=== PATIENT | female | born 1975 | race African-American/Black ===

== ENCOUNTER 2017-11-13 16:48 | Emergency (ER) | payer OTHER ==
[~2017-11-13] VITALS: Ht 167.6 cm; Wt 58.1 kg
[~2017-11-13 16:48] MED LIST: DIFLUCAN100 MG ORAL; IBUPROFEN600 M1 PO; IBUPROFEN600 MG ORAL; MACROBID100 MG ORAL; NKM; VIBRAMYCIN100 MG ORAL
[2017-11-13] MEDS ORDERED: oxyCODONE HCL/Acetaminophen 5/325mg ORAL ONE (18:45)
[2017-11-13 20:04] LABS: BASOPHILS % (AUTO) 0.8 % (0.0-2.0); HEMATOCRIT 38.6 % (37.0-47.0); HEMOGLOBIN 13.3 G/DL (12.0-16.0); LYMPHOCYTES % (AUTO) 21.4 % (20.0-45.0); MEAN CORPUSCULAR VOLUME 92 FL (80-99); MONOCYTES % (AUTO) 9.3 % (1.0-10.0); NEUTROPHILS % (AUTO) 67.5 % (45.0-75.0); PLATELET COUNT 243 K/UL (150-450); RED BLOOD COUNT 4.21 M/UL (4.20-5.40); RED CELL DISTRIBUTION WIDTH 11.4 % (11.6-14.8); WHITE BLOOD COUNT 9.5 K/UL (4.8-10.8)
[2017-11-13 20:09] LABS: ANION GAP 9 mmol/L (5-15); BLOOD UREA NITROGEN 6 mg/dL (7-18); CALCIUM 9.1 MG/DL (8.5-10.1); CARBON DIOXIDE 26 MMOL/L (21-32); CHLORIDE 103 MMOL/L (98-107); CREATININE 0.8 MG/DL (0.55-1.30); POTASSIUM 3.6 MMOL/L (3.5-5.1); SODIUM 138 MMOL/L (136-145)
[2017-11-13 21:00] VITALS: BP 116/72
[2017-11-13] MEDS ORDERED: MACROBID100 MG ORAL (21:00)
[2017-11-13] MEDS ORDERED: PRENATAL LOW I1 EACH PO (21:21)
[2017-11-13] MEDS ORDERED: TYLENOL EXTRA500 MG ORAL (21:22)
[2017-11-13 21:25] VITALS: BP 116/72
--- NOTE | 2017-11-13 22:56 | Emergency Room Report ---
History of Present Illness General Chief Complaint: Abdominal Pain Source: Patient Present Illness HPI Ms. Moyer is pleasant 41 yo female without significant past medical history who presents with suprapubic pain. The pain began on Monday. Now she has left flank pain. Pain is sharp. She has nausea. Last menstrual period October 01. Gradual onset of symptoms. Pain is worse with movement. Moderate in severity. Allergies: Coded Allergies: PENICILLINS (Unverified Allergy, Unknown, 04/22/14) Patient History Past Medical History: other - PID Social History: Reports: smoking, drug use - marijuana; Denies: alcohol use Last Menstrual Period: 10/01/17 Reviewed Nursing Documentation: PMH: Agreed; PSxH: Agreed Nursing Documentation-PMH Past Medical History: No History, Except For Hx Asthma: Yes Review of Systems Constitutional: Denies: fever, malaise Cardiovascular: Denies: chest pain Gastrointestinal: Reports: abdominal pain Musculoskeletal: Reports: back pain All Other Systems: negative except mentioned in HPI Physical Exam Vital Signs Date Time Temp Pulse Resp B/P (MAP) Pulse Ox O2 Delivery O2 Flow Rate FiO2 11/13/17 17:01 98.2 90 18 112/79 98 Room Air 98.2 Sp02 EP Interpretation: reviewed, normal General Appearance: no apparent distress, alert, GCS 15, non-toxic Head: normocephalic, atraumatic Eyes: bilateral eye normal inspection, bilateral eye PERRL ENT: hearing grossly normal, normal pharynx, no angioedema, normal voice Neck: full range of motion, supple/symm/no masses Respiratory: chest non-tender, lungs clear, normal breath sounds, speaking full sentences Cardiovascular #1: regular rate, rhythm, no edema Gastrointestinal: normal bowel sounds, non tender, soft, non-distended, no guarding, no rebound Rectal: deferred Genitourinary: normal inspection, no CVA tenderness Musculoskeletal: back normal, gait/station normal, normal range of motion, non- tender, calf tenderness Neurologic: alert, oriented x3, responsive, motor strength/tone normal, sensory intact, speech normal Psychiatric: judgement/insight normal, memory normal, mood/affect normal, no suicidal/homicidal ideation Skin: normal color, no rash, warm/dry, well hydrated Medical Decision Making Diagnostic Impression: Primary Impression: UTI (urinary tract infection) Additional Impression: ER Course New diagnosis of with documented IUP and UTI rx: tylenol nitrofurantion PNV Labs Test 11/13/17 18:37 11/13/17 19:40 Urine HCG, Qualitative Positive (NEGATIVE) White Blood Count 9.5 K/UL (4.8-10.8) Red Blood Count 4.21 M/UL (4.20-5.40) Hemoglobin 13.3 G/DL (12.0-16.0) Hematocrit 38.6 % (37.0-47.0) Mean Corpuscular Volume 92 FL (80-99) Mean Corpuscular Hemoglobin 31.5 PG (27.0-31.0) Mean Corpuscular Hemoglobin Concent 34.4 G/DL (32.0-36.0) Red Cell Distribution Width 11.4 % (11.6-14.8) Platelet Count 243 K/UL (150-450) Mean Platelet Volume 7.2 FL (6.5-10.1) Neutrophils (%) (Auto) 67.5 % (45.0-75.0) Lymphocytes (%) (Auto) 21.4 % (20.0-45.0) Monocytes (%) (Auto) 9.3 % (1.0-10.0) Eosinophils (%) (Auto) 1.0 % (0.0-3.0) Basophils (%) (Auto) 0.8 % (0.0-2.0) Sodium Level 138 MMOL/L (136-145) Potassium Level 3.6 MMOL/L (3.5-5.1) Chloride Level 103 MMOL/L (98-107) Carbon Dioxide Level 26 MMOL/L (21-32) Anion Gap 9 mmol/L (5-15) Blood Urea Nitrogen 6 mg/dL (7-18) Creatinine 0.8 MG/DL (0.55-1.30) Estimat Glomerular Filtration Rate > 60 mL/min (>60) Glucose Level 94 MG/DL (74-106) Calcium Level 9.1 MG/DL (8.5-10.1) Human Chorionic Gonadotropin, Quant 68598 mIU/mL (1-6) CT/MRI/US Diagnostic Results CT/MRI/US Diagnostic Results : Imaging Test Ordered: ultrasound Impression IUP Last Vital Signs Date Time Temp Pulse Resp B/P (MAP) Pulse Ox O2 Delivery O2 Flow Rate FiO2 11/13/17 19:24 98.2 11/13/17 17:01 90 18 112/79 98 Room Air Disposition: HOME, SELF-CARE Condition: Stable Scripts Acetaminophen* (TYLENOL EXTRA STRENGTH*) 500 Mg Tablet 500 MG ORAL Q6H PRN for Mild Pain/Temp > 100.5, #30 TAB 0 Refills Prov: RENALDO HENSON 11/13/17 Pnv With Ca,No.74/Iron/Fa ( LOW IRON TABLET) 1 Each Tablet 1 EACH PO DAILY for 90 Days, #90 TAB 2 Refills Prov: RENALDO HENSON 11/13/17 Nitrofurantoin Monohyd/M-Cryst (Nitrofurantoin [place]-Mcr 100 mg) 100 Mg Capsule 100 MG ORAL BID for 10 Days, #20 CAP Prov: RENALDO HENSON 11/13/17 Patient Instructions: Urinary Tract Infection, [id number], Abdominal Pain During RENALDO HENSON Nov 13, 2017 22:56
--- NOTE | 2017-11-14 09:27 | Diagnostic Imaging Report ---
Indication: Pelvic pain, positive test Technique: Transabdominal and transvaginal images Comparison: none Findings: Uterus measures 8.9 cm length by 3.7 cm AP. Within the endometrium, there is a gestational sac.. It demonstrates a yolk sac and a pole. [place]-rump length of the pole is 6 mm, corresponding estimated gestational age 6 weeks 3 days. This demonstrates positive heart activity, heart rate 180 bpm. No subchorionic hemorrhage demonstrated. No myometrial abnormality. Right ovary measures 3.7 cm in length, demonstrates a collapsed corpus luteum. The left ovary measures 4 cm in length. No adnexal mass demonstrated. Normal ovarian blood flow bilaterally. No free cul-de-sac fluid Impression: Single live intrauterine . No gestational age 6 weeks 3 days by crown-rump length. No unusual features
== END 2017-11-13 21:25 | disposition home or self-care (01) ==
LOC: EMR 20:00
DX: O23.40 Unspecified infection of urinary tract in pregnancy, unspecified trimester (principal); Z3A.00 Weeks of gestation of pregnancy not specified; Z88.0 Allergy status to penicillin
CPT/HCPCS: 36415; 76801; 76830; 80048; 81025; 84702; 85025; 99284

== ENCOUNTER 2018-10-20 16:47 | Emergency (ER) | payer OTHER ==
[~2018-10-20] VITALS: Ht 167.6 cm; Wt 61.7 kg
[~2018-10-20 16:47] MED LIST changes: +ACETAMINOPHEN-1 EAC1 ORAL; +HYDROCODON-ACE1 EA15 ORAL; +PRENATAL LOW I1 EACH PO; +TYLENOL EXTRA500 MG ORAL
[2018-10-20 16:51] VITALS: BP 118/82
--- NOTE | 2018-10-20 17:06 | NUR ---
ED Nurse Note: Pt came in from home due to R lower abdominal pain with vaginal bleeding. Pt started mentrual period on 10/03/18, has been bleeding on and off, today passed a blood clot. Pt worries that symptoms resemble miscarriage that she experienced last November. Pain 12/11 jeffy. AOx4, VSS jeffy. Will cont to monitor.
[2018-10-20 17:39] LABS: APPEARANCE,URINE CLEAR; BASOPHILS % (AUTO) 1.4 % (0.0-2.0); BILIRUBIN, URINE NEGATIVE (NEGATIVE); COLOR,URINE PALE YELLOW; GLUCOSE, URINE (UA) NEGATIVE (NEGATIVE); KETONES,URINE NEGATIVE (NEGATIVE); LEUKOCYTE ESTERASE ,URINE NEGATIVE (NEGATIVE); MEAN CORPUSCULAR VOLUME 95 FL (80-99); MONOCYTES % (AUTO) 7.2 % (1.0-10.0); NEUTROPHILS % (AUTO) 50.3 % (45.0-75.0); NITRITE,URINE NEGATIVE (NEGATIVE); PH,URINE 7 (4.5-8.0); PLATELET COUNT 226 K/UL (150-450); PROTEIN,URINE NEGATIVE (NEGATIVE); RED BLOOD COUNT 4.21 M/UL (4.20-5.40); RED CELL DISTRIBUTION WIDTH 11.7 % (11.6-14.8); UROBILINOGEN,URINE 1 MG/DL (0.0-1.0); WHITE BLOOD COUNT 4.5 K/UL (4.8-10.8)
[2018-10-20 18:06] LABS: ANION GAP 8 mmol/L (5-15); BLOOD UREA NITROGEN 9 mg/dL (7-18); CALCIUM 8.9 MG/DL (8.5-10.1); CARBON DIOXIDE 25 MMOL/L (21-32); CHLORIDE 105 MMOL/L (98-107); CREATININE 0.9 MG/DL (0.55-1.30); POTASSIUM 3.8 MMOL/L (3.5-5.1); SODIUM 138 MMOL/L (136-145)
[2018-10-20] MEDS ORDERED: Ketorolac 30mg Inj IV ONE (18:15)
--- NOTE | 2018-10-20 18:54 | NUR ---
ED Nurse Note: Pt down to US for imaging.
[2018-10-20 19:02] VITALS: BP 121/74
--- NOTE | 2018-10-20 20:18 | Diagnostic Imaging Report ---
Indication:Lower abdominal and pelvic pain Technique: Grayscale and duplex Doppler imaging of the pelvis performed utilizing a transabdominal and endovaginal scan. Comparison: None Findings: The size, contour, and configuration of the uterus is within normal limits. The endometrium is uniformly echogenic and normal in thickness measuring 4 mm. Uterus 7.6 x 4 x 3.1 cm. The ovaries appear normal bilaterally with good dopplerable blood flow. There is no significant free fluid identified. There is a probable hemorrhagic cyst measuring 1.5 cm within the left ovary. There is no free fluid. The right ovary measures 3.6 x 2.5 x 2.5 cm. Left ovary 3.9 x 4 x 2.1 cm. IMPRESSION: Negative pelvic ultrasound. No acute findings.
[2018-10-20] MEDS ORDERED: IBUPROFEN600 MG ORAL (20:20)
--- NOTE | 2018-10-20 20:20 | Emergency Room Report ---
History of Present Illness General Chief Complaint: Abdominal Pain Source: Medical Record Present Illness HPI 42-year-old female presents to the emergency department complaining of 9 out of 10 severity lower and right-sided abdominal cramping pain associated with some vaginal bleeding. Patient reports that she just had her period on the third of this month and she is concerned that this could possibly be a miscarriage as she saw a large piece of tissue come out with some of the vaginal bleeding. Patient states that she has had a miscarriage in the past and her symptoms are very similar. Patient denies having a positive at home or in office test. Patient also states that her last menstrual cycle was not late. States she is sexually active and is not taking any form of control. Denies nausea, vomiting, fevers, chills, abdominal tenderness, constipation or diarrhea. reports hx of ovarian cyst. denies hx of fibroids. Pt. is . Denies receiving rhogam during any of her previous pregnancies/miscarriages. Patient describes intermittent scant dark vaginal discharge and on occasion some pink/red vaginal discharge. Patient denies urinary frequency, urgency, dysuria or hematuria. Denies Suspicion of STI. Denies hx of anemia or having symptoms such as near syncope or dizziness. Allergies: Coded Allergies: PENICILLINS (Unverified Allergy, Unknown, 04/22/14) Patient History Past Medical History: see triage record, old chart reviewed - pt. has blood type O Positive Past Surgical History: none Pertinent Family History: none Last Menstrual Period: 10/03/18 Reviewed Nursing Documentation: PMH: Agreed; PSxH: Agreed Nursing Documentation-PMH Past Medical History: No History, Except For Hx Asthma: Yes Review of Systems All Other Systems: negative except mentioned in HPI Physical Exam Vital Signs Date Time Temp Pulse Resp B/P (MAP) Pulse Ox O2 Delivery O2 Flow Rate FiO2 10/20/18 16:51 98.2 80 19 118/82 (94) 97 Room Air Sp02 EP Interpretation: reviewed, normal General Appearance: no apparent distress, alert, GCS 15, non-toxic Head: normocephalic, atraumatic Eyes: bilateral eye normal inspection, bilateral eye PERRL ENT: hearing grossly normal, normal voice Neck: full range of motion Respiratory: chest non-tender, lungs clear, normal breath sounds, speaking full sentences Cardiovascular #1: regular rate, rhythm Gastrointestinal: normal bowel sounds, non tender, soft, non-distended, no guarding Rectal: deferred Genitourinary: normal inspection, no CVA tenderness, adnexa normal, cervix normal, ext genitalia/vag normal, other - darker brown blood in the vaginal vault. no CMT. Musculoskeletal: back normal, gait/station normal, normal range of motion, non- tender Neurologic: alert, oriented x3, responsive, motor strength/tone normal, sensory intact, speech normal, grossly normal Psychiatric: judgement/insight normal Medical Decision Making PA Attestation Dr. Wolf Is my supervising Physician whom patient management has been discussed with. Diagnostic Impression: Primary Impression: Ovarian cyst Qualified Codes: N83.201 - Unspecified ovarian cyst, right side ER Course 42-year-old female presents to the emergency department complaining of 9 out of 10 severity lower and right-sided abdominal cramping pain associated with some vaginal bleeding. Patient reports that she just had her period on the third of this month and she is concerned that this could possibly be a miscarriage as she saw a large piece of tissue come out with some of the vaginal bleeding. Patient states that she has had a miscarriage in the past and her symptoms are very similar. Patient denies having a positive at home or in office test. Patient also states that her last menstrual cycle was not late. States she is sexually active and is not taking any form of control. Denies nausea, vomiting, fevers, chills, abdominal tenderness, constipation or diarrhea. reports hx of ovarian cyst. denies hx of fibroids. Pt. is . Denies receiving rhogam during any of her previous pregnancies/miscarriages. Patient describes intermittent scant dark vaginal discharge and on occasion some pink/red vaginal discharge. Patient denies urinary frequency, urgency, dysuria or hematuria. Denies Suspicion of STI. Denies hx of anemia or having symptoms such as near syncope or dizziness. Ddx considered but are not limited to Diverticulitis, acute appendicitis, ovarian torsion, ectopic , PID tubo-ovarian abscess, ovarian cyst. Vital signs: are WNL, pt. is afebrile H&PE are most consistent with possible ovarian cyst, however due to presentation will r/o torsion, ectopic, and stone. ORDERS: -CBC & CMP: unremarkable -UA: NO evidence of infection, elevated RBC's and occult blood consistent with vaginal bleeding -URINE HCG:Negative - Hcg Quant: 1 ( negative) -Pelvic US Complete: some pelvic free fluid, no ovarian torsion. ED INTERVENTIONS: - 30mg IV Toradol DISCHARGE: At this time pt. is stable for d/c to home. Will provide printed patient care instructions, and any necessary prescriptions. Care plan and follow up instructions have been discussed with the patient prior to discharge. Labs Test 10/20/18 17:20 White Blood Count 4.5 K/UL (4.8-10.8) Red Blood Count 4.21 M/UL (4.20-5.40) Hemoglobin 13.0 G/DL (12.0-16.0) Hematocrit 40.0 % (37.0-47.0) Mean Corpuscular Volume 95 FL (80-99) Mean Corpuscular Hemoglobin 31.0 PG (27.0-31.0) Mean Corpuscular Hemoglobin Concent 32.7 G/DL (32.0-36.0) Red Cell Distribution Width 11.7 % (11.6-14.8) Platelet Count 226 K/UL (150-450) Mean Platelet Volume 7.0 FL (6.5-10.1) Neutrophils (%) (Auto) 50.3 % (45.0-75.0) Lymphocytes (%) (Auto) 38.0 % (20.0-45.0) Monocytes (%) (Auto) 7.2 % (1.0-10.0) Eosinophils (%) (Auto) 3.0 % (0.0-3.0) Basophils (%) (Auto) 1.4 % (0.0-2.0) Urine Color Pale yellow Urine Appearance Clear Urine pH 7 (4.5-8.0) Urine Specific [place] 1.010 (1.005-1.035) Urine Protein Negative (NEGATIVE) Urine Glucose (UA) Negative (NEGATIVE) Urine Ketones Negative (NEGATIVE) Urine Blood 4+ (NEGATIVE) Urine Nitrite Negative (NEGATIVE) Urine Bilirubin Negative (NEGATIVE) Urine Urobilinogen 1 MG/DL (0.0-1.0) Urine Leukocyte Esterase Negative (NEGATIVE) Urine RBC 5-10 /HPF (0 - 2) Urine WBC 0 /HPF (0 - 2) Urine Squamous Epithelial Cells Occasional /LPF Urine Bacteria None /HPF (NONE) Urine HCG, Qualitative Negative (NEGATIVE) Sodium Level 138 MMOL/L (136-145) Potassium Level 3.8 MMOL/L (3.5-5.1) Chloride Level 105 MMOL/L (98-107) Carbon Dioxide Level 25 MMOL/L (21-32) Anion Gap 8 mmol/L (5-15) Blood Urea Nitrogen 9 mg/dL (7-18) Creatinine 0.9 MG/DL (0.55-1.30) Estimat Glomerular Filtration Rate > 60 mL/min (>60) Glucose Level 108 MG/DL (74-106) Calcium Level 8.9 MG/DL (8.5-10.1) Human Chorionic Gonadotropin, Quant 1 mIU/mL (1-6) CT/MRI/US Diagnostic Results CT/MRI/US Diagnostic Results : Imaging Test Ordered: Pelvic US Complete Impression "Some pelvic free fluid, no ovarian torsion. " Per official radiology report- Please see report for specific details. Last Vital Signs Date Time Temp Pulse Resp B/P (MAP) Pulse Ox O2 Delivery O2 Flow Rate FiO2 10/20/18 19:02 98.2 87 20 121/74 99 Room Air Disposition: HOME, SELF-CARE Condition: Stable Scripts Ibuprofen* (MOTRIN*) 600 Mg Tablet 600 MG ORAL THREE TIMES A DAY, #30 TAB 0 Refills Prov: Kathrine Chu 10/20/18 Referrals: NON PHYSICIAN (PCP) Patient Instructions: Ovarian Cyst Additional Instructions: Take medications as directed. Follow up with a OVEREDGER within 3 days, even if your symptoms have resolved. * * Return sooner to ED if new symptoms occur, or current symptoms become worse. - Please note that this Emergency Department Report was dictated using [employer] engineer technology software, occasionally this can lead to erroneous entry secondary to interpretation by the dictation equipment. Kathrine Chu Oct 20, 2018 20:19
[2018-10-20 20:26] VITALS: BP 121/74
--- NOTE | 2018-10-20 20:26 | NUR ---
ED Nurse Note: Patient discharged in stable condition, verbalized understanding of discharge instructions.
== END 2018-10-20 20:26 | disposition home or self-care (01) ==
LOC: EMR 17:12
DX: N83.201 Unspecified ovarian cyst, right side (principal); Z88.0 Allergy status to penicillin
CPT/HCPCS: 36415; 76830; 76856; 80048; 81003; 81025; 84702; 85025; 96374; 99284; J1885